=== PATIENT | female | born 1950 | race African-American/Black ===

== ENCOUNTER 2016-08-11 16:21 | Emergency (ER) | payer MEDICARE, BC ==
[~2016-08-11 16:21] MED LIST: CARDCD240 PO; CATAPRES3 TOP; LEVEMFLXPN SC; MICARDIS80 PO; NEUR100 PO; PLAVIX PO; SPIRO50 PO; ZOCOR40 PO
[2016-08-11 17:03] LABS: BASOPHILS 0.1 %; BASOPHILS ABSOLUTE 0.01 10/3/uL (0.0-0.16); EOSINOPHILS ABSOLUTE 0.22 10/3/uL (0.0-0.53); HEMOGLOBIN 9.3 g/dL (12.0-16.0); IMMATURE GRANULOCYTES 0.1 %; IMMATURE GRANULOCYTES ABSOLUTE 0.01 10/3/uL (0.0-0.11); LYMPHOCYTES 22.2 %; LYMPHOCYTES ABSOLUTE 1.65 10/3/uL (0.67-4.30); MEAN CORPUSCULAR HEMOGLOB 27.9 pg (26.0-34.0); MEAN CORPUSCULAR VOLUME 81.7 fL (80-100); MEAN PLATELET VOLUME 11.4 fL (9.2-13.0); MONOCYTES 5.5 %; MONOCYTES ABSOLUTE 0.41 10/3/uL (0.21-1.20); NEUTROPHILS 69.1 %; NEUTROPHILS ABSOLUTE 5.14 10/3/uL (2.02-8.40); RBC DISTRIBUTION WIDTH 14.1 % (12.0-16.0); RED CELL COUNT 3.33 10/6/uL (4.0-5.6)
[2016-08-11 17:06] LABS: ER CBC TAT 0 Hrs 13 Mins; HEMATOCRIT 27.2 % (36.0-48.0); MANUAL DIFF NO %; MEAN CORPUS HGB CONC 34.2 g/dL (32.0-36.0); PLATELET COUNT 330 10/3/uL (150-400); WHITE BLOOD CELLS 7.4 10/3/uL (4.5-10.5)
[2016-08-11 17:10] LABS: INTERNATIONAL NORMAL RATI 1.1 UNITS (-); PARTIAL THROMBO TIME 30.7 SEC (22.5-37.2); PROTIME (NOT ORD) 14.1 SEC (12.0-14.5)
[2016-08-11 17:19] LABS: CALCIUM, SERUM 9.4 MG/DL (8.5-10.4); CHEST PAIN PROFILE TAT 0 Hrs 26 Mins; CHLORIDE, SERUM 101 MMOL/L (96-112); POTASSIUM, SERUM 4.6 MMOL/L (3.5-5.3); TROPONIN I <0.02 NG/ML (<0.05)
[2016-08-11 17:22] LABS: BUN (BLOOD UREA NITROGEN) 67 MG/DL (6-23); CO2 (CARBON DIOXIDE) 22 MMOL/L (24-34); CREATININE 3.01 MG/DL (0.55-1.02); GFR AFRICAN AMERICAN 18 ML/MIN (>=60); GFR NON AFRICAN AMERICAN 15 ML/MIN (>=60); GLUCOSE, SERUM 323 MG/DL (60-99); SODIUM, SERUM 134 MMOL/L (135-148)
[2016-08-12] MEDS ORDERED: HUMALOG SC (16:45)
[2016-08-12] MEDS ORDERED: NEUR300 PO (16:46)
[2016-08-12] MEDS ORDERED: LANTUSCART SC (16:46)
[2016-08-12] MEDS ORDERED: PROTONIX PO (16:46)
[2016-08-12] MEDS ORDERED: ISORDIL20 PO (16:47)
[2016-08-12] MEDS ORDERED: FOLIC PO (16:47)
[2016-08-12] MEDS ORDERED: L20 PO (16:48)
[2016-08-12] MEDS ORDERED: LIPITOR40 PO (16:48)
[2016-08-12] MEDS ORDERED: APRES50 PO (16:48)
[2016-08-12] MEDS ORDERED: PLAVIX PO (16:48)
[2016-08-12] MEDS ORDERED: NORV10 PO (16:49)
[2016-08-12] MEDS ORDERED: NORCO1 TA1 PO (16:50)
== END 2016-08-11 21:32 | disposition left against medical advice (07) ==
LOC: ER 16:21
PROVIDERS: Emergency Medicine
DX: Z53.21 Procedure and treatment not carried out due to patient leaving prior to being seen by health care provider (principal)
CPT/HCPCS: 71010; 80048; 81001; 83735; 84484; 85025; 85610; 85730; 93005